=== PATIENT | female | born 2000 | race Caucasian/White ===

== ENCOUNTER 2024-06-20 14:27 | Inpatient (IN) | payer OTHER, MEDICAID ==
[2024-06-20 15:09] LABS: BASOPHILS PERCENT AUTO 0.2 % (0.0-1.0); EOSINOPHILS PERCENT AUTO 0.2 % (0.0-6.0); HEMATOCRIT 42.7 % (37.0-47.0); IMMATURE GRAN ABSOLUTE AUTO 0.04 K/mm3 (0.00-0.05); IMMATURE GRAN PERCENT AUTO 0.4 % (0.0-0.4); LYMPHOCYTES ABSOLUTE AUTO 0.7 K/mm3 (1.0-4.8); LYMPHOCYTES PERCENT AUTO 7.3 % (24.0-44.0); MEAN CORPUSCULAR HEMOGLOBIN 32.4 pg (28.0-32.0); MEAN CORPUSCULAR HGB CONC 35.1 g/dl (32.0-36.0); MEAN CORPUSCULAR VOLUME 92.2 fl (83.0-99.0); MEAN PLATELET VOLUME 9.9 fl (9.4-12.3); MONOCYTES ABSOLUTE AUTO 0.5 K/mm3 (0.0-0.8); MONOCYTES PERCENT AUTO 5.7 % (0.0-8.0); NEUTROPHILS ABSOLUTE AUTO 8.1 K/mm3 (1.8-7.7); NEUTROPHILS PERCENT AUTO 86.2 % (41.0-71.0); PLATELET COUNT,PLT 196 K/mm3 (150-400); RED BLOOD CELL COUNT 4.63 M/mm3 (4.10-5.30); WHITE BLOOD CELL COUNT,WBC 9.35 K/mm3 (3.9-11.3)
[2024-06-20 15:33] LABS: CREATININE 0.7 mg/dL (0.55-1.02); EST CRCL DRUG DOSING (CG) 115.01 mL/min; URIC ACID 7.4 mg/dL (2.6-6.0)
[2024-06-20 16:35] LABS: CREATININE,URINE RAND 185.9 mg/dL (30.0-125.0); PROTEIN CREATININE RATIO,URINE 437.9 mg/g (0-149); PROTEIN,URINE RANDOM 81.4 mg/dL (0.0-11.8)
[2024-06-20] MEDS ORDERED: Sodium Chloride 0.9% 10 ML Syringe FLUSH PRN (16:45)
[2024-06-20] MEDS ORDERED: Lidocaine 1% 50 ML MDV INJECT PRN (16:45)
[2024-06-20] MEDS ORDERED: Nalbuphine 10 MG/1 ML Vial IVPUSH PRN (16:45)
[2024-06-20] MEDS ORDERED: Oxytocin/0.9 % Sodium Chloride 30 UNIT/500 ML BAG IV SCH (16:45)
[2024-06-20] MEDS: Misoprostol 25 MCG (1/4 of 100 MCG) Tab VAG ONE (17:45)
[2024-06-20] MEDS: Misoprostol 25 MCG (1/4 of 100 MCG) Tab VAG PRN (21:56)
[2024-06-21] MEDS: Lactated Ringers 1,000 ML IV SCH (02:20)
[2024-06-21] MEDS: Ondansetron 4 MG/2 ML SDV IVPUSH PRN (04:24)
[2024-06-21] MEDS ORDERED: ePHEDrine 50 MG/ML SDV IVPUSH PRN (04:52)
[2024-06-21] MEDS ORDERED: diphenhydrAMINE 50 MG/ML SDV IVPUSH PRN (04:52)
[2024-06-21] MEDS: Bupivacaine/fentaNYL/NS 100 ML Bag EPIDUR PRN (05:01)
[2024-06-21] MEDS: Oxytocin/0.9 % Sodium Chloride 30 UNIT/500 ML BAG IV SCH (06:50)
[2024-06-21] MEDS: Misoprostol 200 MCG Tab BUCCAL STA (09:21)
[2024-06-21] MEDS ORDERED: Acetaminophen 325 MG Tab PO PRN (10:20)
[2024-06-21] MEDS: Ibuprofen 600 MG Tab PO SCH (10:30)
[2024-06-21] MEDS: Witch Hazel Medicated Pads 40/Jar TOP PRN (10:48)
[2024-06-21] MEDS: Benzocaine/Menthol 20%-0.5% Spray 78 GM Cannister TOP PRN (10:49)
[2024-06-22] MEDS: Sodium Chloride 0.9% 10 ML Syringe FLUSH SCH (06:04)
[2024-06-22] MEDS: Docusate Sodium 100 MG Cap PO PRN (21:30)
== END 2024-06-23 13:30 | disposition home or self-care (01) | DRG 807 ==
LOC: JD.OBCHECK 14:27 → JD.OB 14:31 → JD.OBCHECK 16:55 → OBSVTOIN 06-21 08:03 → JD.OB 06-21 08:04
PROVIDERS: ADMIT Obstetrics & Gynecology; ATTEND Obstetrics & Gynecology
PROC: 10E0XZZ Delivery of Products of Conception, External Approach (ICD-10-PCS; principal; 2024-06-21)
PROC: 0KQM0ZZ Repair Perineum Muscle, Open Approach (ICD-10-PCS; 2024-06-21)
PROC: 3E0P7VZ Introduction of Hormone into Female Reproductive, Via Natural or Artificial Opening (ICD-10-PCS; 2024-06-21)
PROC: 3E033VJ Introduction of Other Hormone into Peripheral Vein, Percutaneous Approach (ICD-10-PCS; 2024-06-21)
PROC: 3E0DXGC Introduction of Other Therapeutic Substance into Mouth and Pharynx, External Approach (ICD-10-PCS; 2024-06-21)
PROC: 3E0R3BZ Introduction of Anesthetic Agent into Spinal Canal, Percutaneous Approach (ICD-10-PCS; 2024-06-21)
PROC: 00HU33Z Insertion of Infusion Device into Spinal Canal, Percutaneous Approach (ICD-10-PCS; 2024-06-21)
DX: O43.193 Other malformation of placenta, third trimester (principal); Z37.0 Single live birth; O14.04 Mild to moderate pre-eclampsia, complicating childbirth; O70.1 Second degree perineal laceration during delivery; Z3A.37 37 weeks gestation of pregnancy; Z88.0 Allergy status to penicillin
CPT/HCPCS: 36415; 51701; 51702; 59025; 59409; 82565; 82570; 83615; 84156; 84450; 84460; 84520; 84550; 85025; 86592; 86850; 86900; 86901; A9270-GY; J2405; J3490; J7120; J7999